=== PATIENT | male | born 1995 | race Caucasian/White ===

== ENCOUNTER 2018-04-11 11:46 | Emergency (ER) | payer MEDICAID ==
[2018-04-11 11:51] VITALS: BP 133/57
== END 2018-04-11 12:37 | disposition home or self-care (01) ==
LOC: ED 11:46
DX: L03.032 Cellulitis of left toe (principal)

== ENCOUNTER 2019-05-28 17:47 | Emergency (ER) | payer SELFPAY ==
[~2019-05-28] VITALS: Ht 170.2 cm; Wt 71.7 kg
[2019-05-28 17:50] VITALS: Ht 170.2 cm; Wt 71.7 kg
[2019-05-28 20:37] VITALS: BP 127/56
== END 2019-05-28 20:37 | disposition home or self-care (01) ==
LOC: ED 17:47
DX: J02.0 Streptococcal pharyngitis (principal); R59.0 Localized enlarged lymph nodes; F17.210 Nicotine dependence, cigarettes, uncomplicated
CPT/HCPCS: J0561